=== PATIENT | female | born 1995 | race Caucasian/White ===

== ENCOUNTER 2017-03-15 22:25 | Emergency (ER) | payer OTHER ==
[~2017-03-15] VITALS: Ht 160 cm; Wt 65.5 kg
[2017-03-15] MEDS ORDERED: BCP (22:32)
[2017-03-16] MEDS ORDERED: DEXAMETHASONE 4 MG TABLET PO ONE (00:30)
[2017-03-16] MEDS ORDERED: ACETAMINOPHEN 325 MG TABLET PO ONE (00:30)
[2017-03-16] MEDS ORDERED: ACETAMINOPHEN 500 MG TABLET ONE (00:42)
[2017-03-16] MEDS ORDERED: DEXAMETHASONE 4 MG TABLET ONE (00:43)
[2017-03-16 01:02] VITALS: BP 118/82
== END 2017-03-16 01:05 | disposition home or self-care (01) ==
LOC: ED 23:59
DX: B34.9 Viral infection, unspecified (principal)
CPT/HCPCS: 99283